=== PATIENT | female | born 1935 | race Two or more races ===

== ENCOUNTER → 2016-03-11 | Outpatient (CLI) | payer OTHER, MEDICAID | LOC: BHFA 13:30 | PROVIDERS: ATTEND Internal Medicine Cardiovascular Disease | DX: R06.02 Shortness of breath (principal) | CPT/HCPCS: 78452; 93017; A9500; J2785 ==

== ENCOUNTER → 2016-03-27 | Outpatient (CLI) | payer OTHER, MEDICAID ==
--- NOTE | 2016-03-27 14:23 | DX ---
Chest, PA and Lateral History: Dyspnea, R06.02 Comparison: May 28, 2014 Findings: There is diffuse chronic interstitial disease, without focal consolidation or pleural effus ion. The heart remains enlarged with a globular shape raising the possibility of pericardial effusion . The pulmonary vascularity is not plethoric. There is chronic tortuosity of the thoracic aorta. Ther e is possibly stable subcarinal adenopathy vs density related to left atrial enlargement.. There is n o lung parenchymal mass. There is no pleural effusion or pneumothorax. A focal kyphosis centered at t he thoracolumbar junction is stable. There are no thoracic compression abnormalities. Impression: 1. Chronic interstitial lung disease. The kyphosis may contribute a restrictive component. 2. Cardiomegaly without failure. 3. Nothing acute identified.
== END ==
LOC: FIMAGING 12:14
DX: J84.9 Interstitial pulmonary disease, unspecified (principal); I51.7 Cardiomegaly; I77.1 Stricture of artery; M40.205 Unspecified kyphosis, thoracolumbar region

== ENCOUNTER 2016-10-19 08:09 | Emergency (ER) | payer OTHER, MEDICAID ==
--- NOTE | 2016-10-19 08:17 | EDPHY ---
H & P Stated Complaint: bi-lat swelling of feet new SOB Time Seen by Provider: 10/19/16 08:16 HPI/ROS: CHIEF COMPLAINT: PND, several weeks of leg swelling, history of atrial fibrillation HISTORY OF PRESENT ILLNESS: The patient presents the emergency department with complaints of paroxysmal nocturnal dyspnea increasing over the past several nights. The patient has a history of chronic atrial fibrillation and is anticoagulated with Coumadin. She typically manages her rate with 25 mg of metoprolol day. Over the past day she has taken 50 mg. The patient recently traveled to [facility] and over the past several weeks has developed increasing lower extremity edema. The patient denies any chest pain. She does report mild dyspnea. The patient's dyspnea was much worse last night however is feeling better now that she has been upright. She denies any complaints of fever, acute rash, melena or acute neurologic symptoms. REVIEW OF SYSTEMS: A comprehensive 10 point review of systems is otherwise negative aside from elements mentioned in the history of present illness. Source: Patient Exam Limitations: No limitations - Personal History Current Tetanus/Diphtheria Vaccine: Yes Current Tetanus Diphtheria and Acellular Pertussis (TDAP): Yes Tetanus Vaccine Date: 11/28/12 - Medical/Surgical History Hx Asthma: No Hx Chronic Respiratory Disease: No Hx Diabetes: No Hx Cardiac Disease: No Hx Renal Disease: No Hx Cirrhosis: No Hx Alcoholism: No Hx HIV/AIDS: No Hx Splenectomy or Spleen Trauma: No Other PMH: Paroxysmal Afib, hypothyroid, small bowel obstruction, lysis of adhesions, osteoarthritis, GERD - Social History Smoking Status: Never smoked - Physical Exam Exam: General Appearance: Elderly female, no acute distress Eyes: Pupils equal and round no pallor or injection ENT, Mouth: Mucous membranes moist Respiratory: Rales bilateral lung hernandez Cardiovascular: Tachycardic, irregular Gastrointestinal: Abdomen is soft and nontender, no masses, bowel sounds normal Neurological: A&O, normal motor function, normal sensory exam, normal cranial nerves Skin: Warm and dry, no rashes Musculoskeletal: Neck is supple nontender Extremities: 1+ bilateral pitting edema Constitutional: Initial Vital Signs Temperature (C) 36.4 C 10/19/16 08:12 Heart Rate 114 H 10/19/16 08:12 Respiratory Rate 16 10/19/16 08:12 Blood Pressure 136/95 H 10/19/16 08:12 O2 Sat (%) 91 L 10/19/16 08:12 O2 Delivery Mode Room Air Allergies/Adverse Reactions: No Known Allergies Allergy (Unverified 10/18/13 03:37) Home Medications: Medication Instructions Recorded Calcium Carbonate [Oyster Shell 500 mg PO TIDMEAL 06/10/12 Calcium 500 mg (*)] Cholecalciferol Vit D3 [Vitamin D3 1,000 units PO DAILY 06/10/12 (*)] Levothyroxine [Synthroid 50 mcg 50 mcg PO DAILY06 06/10/12 (*)] Multivitamins [Multivitamin (*)] 1 each PO DAILY 06/10/12 Ranitidine HCl [Ranitidine HCl 150 150 mg PO DAILY 06/10/12 mg] Aspirin EC [Aspirin EC 81 mg (*)] 81 mg PO DAILY@1300 11/30/12 Metoprolol Tartrate [Lopressor 25 25 mg PO BID #60 tab 10/25/13 mg (*)] Hydrocodone/Acetaminophen [[place] 1 each PO Q6 PRN 10/27/13 5/325 (*)] Furosemide [Lasix 20 MG (*)] 20 mg PO DAILY #7 tab 10/19/16 Medical Decision Making - Diagnostics EKG Interpretation: EKG: Complete interpretation has been separately recorded in the [employer] archive. Summary impression: Atrial fibrillation, rate 100, underlying right bundle branch block, unchanged from prior EKG Imaging Results: Imaging Impressions Chest X-Ray 10/19/16 08:21 Impression: Stable chest. Diffuse interstitial thickening.. ED Course/Re-evaluation: The patient presents to the emergency department with PND, rales on exam and lower extremity edema. The patient's oxygen saturation is 91% on room air. She is noted to be in atrial fibrillation with its in the 100-120 range. The patient had an IV established. She was placed on a tube cleaner. I reviewed the patient's past medical records. The patient's chest x-ray demonstrates no evidence of overwhelming heart failure. She has chronic interstitial lung markings. The patient received 20 mg of IV Lasix. The patient's proBNP level was noted to be elevated. Patient was re-evaluated at 11:00 a.m.. She has gone up to the bathroom twice since receiving IV Lasix. She is feeling better. At this point time she is not acutely hypoxic. She has relative rate control of her atrial fibrillation. She would like to manage her symptoms at home today with a small trial of Lasix for the next several days. The patient understands to return to the emergency department for any worsening symptoms or other concerns. I have asked her to increase her metoprolol to 50 mg daily. The patient will follow up with her regular storekeeper steward. She is discharged home with customary aftercare instructions and return precautions. At 11:50 a.m. patient's blood pressure is normal, heart rate is 89, oxygen saturation 94 % on room air. Differential Diagnosis: Differential diagnosis considered includes atrial fibrillation, congestive heart failure, peripheral edema, myocardial infarction, pulmonary embolism is felt to be on likely secondary to her chronic anticoagulation. - Data Points Laboratory Results: Laboratory Results 10/19/16 08:40 10/19/16 08:40 10/19/16 10/19/16 10/19/16 08:40 08:40 08:40 WBC 6.27 10^3/uL 10^3/uL (3.80-9.50) RBC 3.58 10^6/uL L 10^6/uL (4.18-5.33) Hgb 10.8 g/dL L g/dL (12.6-16.3) Hct 32.2 % L % (38.0-47.0) MCV 89.9 fL fL (81.5-99.8) MCH 30.2 pg pg (27.9-34.1) MCHC 33.5 g/dL g/dL (32.4-36.7) RDW 16.0 % H % (11.5-15.2) Plt Count 167 10^3/uL 10^3/uL (150-400) MPV 11.4 fL fL (8.7-11.7) Neut % (Auto) 79.8 % H % (39.3-74.2) Lymph % (Auto) 12.3 % L % (15.0-45.0) R[place] % (Auto) 5.1 % % (4.5-13.0) Eos % (Auto) 1.3 % % (0.6-7.6) Baso % (Auto) 1.0 % % (0.3-1.7) Nucleat RBC Rel Count 0.0 % % (0.0-0.2) Absolute Neuts (auto) 5.01 10^3/uL 10^3/uL (1.70-6.50) Absolute Lymphs (auto) 0.77 10^3/uL L 10^3/uL (1.00-3.00) Absolute Monos (auto) 0.32 10^3/uL 10^3/uL (0.30-0.80) Absolute Eos (auto) 0.08 10^3/uL 10^3/uL (0.03-0.40) Absolute Basos (auto) 0.06 10^3/uL 10^3/uL (0.02-0.10) Absolute Nucleated RBC 0.00 10^3/uL 10^3/uL (0-0.01) Immature Gran % 0.5 % % (0.0-1.1) Immature Gran # 0.03 10^3/uL 10^3/uL (0.00-0.10) PT 27.6 SEC H SEC (12.0-15.0) INR 2.54 H (0.83-1.16) Sodium 135 mEq/L mEq/L (134-144) Potassium 4.1 mEq/L mEq/L (3.5-5.2) Chloride 96 mEq/L L mEq/L (97-110) Carbon Dioxide 27 mEq/l mEq/l (22-31) Anion Gap 12 mEq/L mEq/L (8-16) BUN 17 mg/dL mg/dL (7-23) Creatinine 0.8 mg/dL mg/dL (0.6-1.0) Estimated GFR > 60 Glucose 115 mg/dL H mg/dL (70-100) Calcium 9.8 mg/dL mg/dL (8.5-10.4) Troponin I < 0.012 ng/mL ng/mL (0.000-0.034) NT-Pro-B Natriuret Pep 5530 pg/mL H pg/mL (0-450) Medications Given: Discontinued Medications Furosemide (Lasix Injection) 20 mg IVP EDNOW ONE Stop: 10/19/16 09:25 Last Admin: 10/19/16 09:33 Dose: 20 mg Departure - Departure Disposition: Home, Routine, Self-Care Clinical Impression: Dyspnea, Pulmonary edema, Atrial fibrillation Condition: Good Instructions: A-fib (Atrial Fibrillation) (ED) Additional Instructions: 1. Take a full 50 mg dose of metoprolol daily. 2. Begin Lasix as directed for the next 5 days - 20 mg tablet once daily. 3. Please return to the ED for any markedly worsening symptoms of chest pain, shortness of breath or other concerns. 4. Please follow up with your regular storekeeper steward for a recheck early next week. Referrals: Minh Tomas MD [Medical Doctor] - As per Instructions Prescriptions: Furosemide [Lasix 20 MG (*)] 20 mg PO DAILY #7 tab
--- NOTE | 2016-10-19 08:25 | CPEKG ---
Heart Rate: 100 RR Interval: 600 QRSD Interval: 124 QT Interval: 352 QTC Interval: 454 QRS [place]: 45 T Wave [place]: 216 EKG Severity - ABNORMAL ECG - EKG Impression: ATRIAL FIBRILLATION, V-RATE 78-143 EKG Impression: RIGHT BUNDLE BRANCH BLOCK Electronically Signed By: Lauro Santos 19-Oct-2016 08:35:22
[2016-10-19 08:49] LABS: % IMMATURE GRANULYOCYTES 0.5 % (0.0-1.1); ABSOLUTE IMMATURE GRANULOCYTES 0.03 10^3/uL (0.00-0.10); ADD DIFF? NO; ADD MORPH? NO; ADD SCAN? NO; ATYPICAL LYMPHOCYTE FLAG 10 (0-99); FRAGMENT RBC FLAG 0 (0-99); HEMATOCRIT 32.2 % (38.0-47.0); HEMOGLOBIN 10.8 g/dL (12.6-16.3); LEFT SHIFT FLG 0 (0-99); LIPEMIA HEMOLYSIS FLAG 80 (0-99); MEAN CELL HEMOGLOBIN 30.2 pg (27.9-34.1); MEAN CELL HEMOGLOBIN CONCENTR. 33.5 g/dL (32.4-36.7); MEAN CELL VOLUME 89.9 fL (81.5-99.8); MEAN PLATELET VOLUME 11.4 fL (8.7-11.7); PLATELET CLUMPS FLAG 0 (0-99); PLATELET COUNT 167 10^3/uL (150-400); RED BLOOD CELL COUNT 3.58 10^6/uL (4.18-5.33)
[2016-10-19 09:06] LABS: ANION GAP 12 mEq/L (8-16); CALCIUM 9.8 mg/dL (8.5-10.4); CARBON DIOXIDE 27 mEq/l (22-31); CHLORIDE 96 mEq/L (97-110); CREATININE 0.8 mg/dL (0.6-1.0); GLOMERULAR FILTRATION RATE > 60; GLUCOSE 115 mg/dL (70-100); POTASSIUM 4.1 mEq/L (3.5-5.2); SODIUM 135 mEq/L (134-144)
[2016-10-19 09:18] LABS: TROPONIN I < 0.012 ng/mL (0.000-0.034)
[2016-10-19] MEDS ORDERED: FUROSEMIDE 20 MG/2 ML VIAL IVP ONE (09:24)
[2016-10-19 09:43] LABS: INR 2.54 (0.83-1.16); PROTIME(PATIENT) 27.6 SEC (12.0-15.0)
[2016-10-19 11:13] VITALS: BP 123/74; PULSE 82; RESP 18; TEMP 98.2; O2SAT 93
== END 2016-10-19 11:16 | disposition home or self-care (01) ==
DX: I48.91 Unspecified atrial fibrillation (principal); J81.1 Chronic pulmonary edema; Z79.82 Long term (current) use of aspirin; Z79.01 Long term (current) use of anticoagulants
CPT/HCPCS: 71020; 93005; 96374; 99285; J1940

== ENCOUNTER → 2016-11-01 | Outpatient (CLI) | payer OTHER, MEDICAID | LOC: FIMAGING 12:37 | PROVIDERS: ATTEND Family Medicine | DX: Z12.31 Encounter for screening mammogram for malignant neoplasm of breast (principal) | CPT/HCPCS: G0202 ==

== ENCOUNTER 2017-06-10 03:57 | Emergency (ER) | payer OTHER, MEDICAID ==
--- NOTE | 2017-06-10 04:08 | EDPHY ---
H & P Time Seen by Provider: 06/10/17 04:08 HPI/ROS: HPI CHIEF COMPLAINT: Severe throat pain. HISTORY OF PRESENT ILLNESS: Patient very pleasant 81-year-old female she has a history of AFib on Coumadin, thyroid disease, she presents emergency room with severe throat pain. Patient states she woke up to have a drink around 2:00 a.m. Try to take a big gulp of water and developed severe throat pain. States she went to bed fine however she did have a bloody nose earlier in the evening and did take a dose of Afrin. Otherwise denies cough, chest pain, shortness of breath, denies extremity pain. Denies headache or posterior neck pain. Pain is located to the posterior pharynx pain when she swallows. She denies having any trouble swallowing but has pain when she swallows. Past Medical History: AFib on Coumadin, thyroid disease, GERD Past Surgical History: No recent surgery Social History: Lives locally, family at bedside. Denies drugs alcohol tobacco products. Family History: Noncontributory ROS REVIEW OF SYSTEMS: A comprehensive 10 point review of systems is otherwise negative aside from elements mentioned in the history of present illness. Exam Constitutional appears well nontoxic no acute distress, frail elderly, triage nursing summary reviewed, vital signs reviewed, awake/alert. Eyes normal conjunctivae and sclera, EOMI, PERRLA. HENT posterior pharynx is unremarkable no significant swelling or erythema, no exudate, uvula midline, tonsillar tissue was absent, no neck swelling, no Abhinav 's, no stridor, no drooling, no trouble breathing, moist mucus membranes, no epistaxis, neck supple/ no meningismus, no raccoon eyes. Respiratory clear to auscultation bilaterally, normal breath sounds, no respiratory distress, no wheezing. Cardiovascular rate normal, regular rhythm, no murmur, no edema, distal pulses normal. Gastrointestinal soft, non-tender, no rebound, no guarding, normal bowel sounds, no distension, no pulsatile mass. Genitourinary no CVA tenderness. Musculoskeletal no midline vertebral tenderness, full range of motion, no calf swelling, no tenderness of extremities, no meningismus, good pulses, neurovascularly intact. Skin pink, warm, & dry, no rash, skin atraumatic. Neurologic awake, alert and oriented x 3, AAOx3, moves all 4 extremities equally, motor intact, sensory intact, CN II-XII intact, normal cerebellar, normal vision, normal speech. Psychiatric normal mood/affect. Heme/Lymph/Immune no lymphadenopathy. Differential Diagnosis: Includes but is not limited to in a particular order pharyngitis, viral pharyngitis, bacterial pharyngitis, GERD, retropharyngeal abscess, infection, foreign body, throat irritation Medical Decision Making: Plan for this patient IV establishment basic blood draw, check CBC and chemistry, check INR as she is on Coumadin had a nosebleed earlier, CT scan soft tissue with IV contrast of the neck, GI cocktail to see if this improves her symptoms. Re-evaluation: 614: Re-evaluation at this time patient states that her pain when she swallows has resolved after the lidocaine neb she feels much better. Still pending CT soft tissue neck with IV contrast to be red and reported. 07: I did re-evaluate the patient she is resting comfortably feels much better. She is able swallow without any difficulty. She states she feels much better. Her CT scan soft tissue neck with IV contrast did not show any acute inflammatory process this was called to me by Dr. Faulkner. No evidence of inflammation on the CT scan. Blood work is reassuring. Coumadin level 3.5. She has no stridor no trouble breathing. Discussed return precautions with the son at bedside. Additionally will given ENT referral K she continues to have some throat pain. I do not see any evidence of infection on exam. Blood work and CT reassuring. Return precautions discussed. Recommend cold fluids today and a soft diet. Source: Patient - Personal History Tetanus Vaccine Date: 11/28/12 - Medical/Surgical History Hx Asthma: No Hx Chronic Respiratory Disease: No Hx Diabetes: No Hx Cardiac Disease: No Hx Renal Disease: No Hx Cirrhosis: No Hx Alcoholism: No Hx HIV/AIDS: No Hx Splenectomy or Spleen Trauma: No Other PMH: Paroxysmal Afib, hypothyroid, small bowel obstruction, lysis of adhesions, osteoarthritis, GERD - Social History Smoking Status: Never smoked Constitutional: Initial Vital Signs Temperature (C) 36.4 C 06/10/17 04:00 Heart Rate 79 06/10/17 04:00 Respiratory Rate 18 06/10/17 04:00 Blood Pressure 132/97 H 06/10/17 04:00 O2 Sat (%) 96 06/10/17 04:00 O2 Delivery Mode Room Air Allergies/Adverse Reactions: No Known Allergies Allergy (Unverified 06/10/17 04:13) Home Medications: Medication Instructions Recorded Calcium Carbonate [Oyster Shell 500 mg PO TIDMEAL 06/10/12 Calcium 500 mg (*)] Cholecalciferol Vit D3 [Vitamin D3 1,000 units PO DAILY 06/10/12 (*)] Levothyroxine [Synthroid 50 mcg 50 mcg PO DAILY06 06/10/12 (*)] Multivitamins [Multivitamin (*)] 1 each PO DAILY 06/10/12 Ranitidine HCl [Ranitidine HCl 150 150 mg PO DAILY 06/10/12 mg] Aspirin EC [Aspirin EC 81 mg (*)] 81 mg PO DAILY@1300 11/30/12 Metoprolol Tartrate [Lopressor 25 25 mg PO BID #60 tab 10/25/13 mg (*)] Hydrocodone/Acetaminophen [[place]tha 1 each PO Q6 PRN 10/27/13 5/325 (*)] Furosemide [Lasix 20 MG (*)] 20 mg PO DAILY #7 tab 10/19/16 Medical Decision Making - Data Points Laboratory Results: Laboratory Results 06/10/17 04:20 06/10/17 04:20 06/10/17 06/10/17 06/10/17 04:20 04:20 04:20 WBC 4.69 10^3/uL 10^3/uL (3.80-9.50) RBC 3.61 10^6/uL L 10^6/uL (4.18-5.33) Hgb 10.9 g/dL L g/dL (12.6-16.3) Hct 32.2 % L % (38.0-47.0) MCV 89.2 fL fL (81.5-99.8) MCH 30.2 pg pg (27.9-34.1) MCHC 33.9 g/dL g/dL (32.4-36.7) RDW 15.3 % H % (11.5-15.2) Plt Count 145 10^3/uL L 10^3/uL (150-400) MPV 10.7 fL fL (8.7-11.7) Neut % (Auto) 67.8 % % (39.3-74.2) Lymph % (Auto) 19.6 % % (15.0-45.0) [place] % (Auto) 9.0 % % (4.5-13.0) Eos % (Auto) 1.9 % % (0.6-7.6) Baso % (Auto) 1.3 % % (0.3-1.7) Nucleat RBC Rel Count 0.0 % % (0.0-0.2) Absolute Neuts (auto) 3.18 10^3/uL 10^3/uL (1.70-6.50) Absolute Lymphs (auto) 0.92 10^3/uL L 10^3/uL (1.00-3.00) Absolute Monos (auto) 0.42 10^3/uL 10^3/uL (0.30-0.80) Absolute Eos (auto) 0.09 10^3/uL 10^3/uL (0.03-0.40) Absolute Basos (auto) 0.06 10^3/uL 10^3/uL (0.02-0.10) Absolute Nucleated RBC 0.00 10^3/uL 10^3/uL (0-0.01) Immature Gran % 0.4 % % (0.0-1.1) Immature Gran # 0.02 10^3/uL 10^3/uL (0.00-0.10) PT 31.9 SEC H SEC (12.0-15.0) INR 3.12 H (0.83-1.16) APTT 49.4 SEC H SEC (23.0-38.0) Sodium 134 mEq/L L mEq/L (135-145) Potassium 3.9 mEq/L mEq/L (3.5-5.2) Chloride 95 mEq/L L mEq/L (97-110) Carbon Dioxide 28 mEq/l mEq/l (22-31) Anion Gap 11 mEq/L mEq/L (8-16) BUN 25 mg/dL H mg/dL (7-23) Creatinine 0.8 mg/dL mg/dL (0.6-1.0) Estimated GFR > 60 Glucose 101 mg/dL H mg/dL (70-100) Calcium 9.3 mg/dL mg/dL (8.5-10.4) Medications Given: Discontinued Medications Al Hydroxide/Mg Hydroxide (Maalox Susp) 30 ml PO ONCE ONE Stop: 06/10/17 04:18 Last Admin: 06/10/17 04:33 Dose: 30 ml Hyoscyamine Sulfate (Levsin, Hyomax-Sl) 0.25 mg PO ONCE ONE Stop: 06/10/17 04:18 Last Admin: 06/10/17 04:33 Dose: 0.25 mg Lidocaine (Lidocaine 2% Viscous) 15 ml PO ONCE ONE Stop: 06/10/17 04:18 Last Admin: 06/10/17 04:33 Dose: 15 ml Lidocaine HCl (Xylocaine-Mpf 1.5%) 10 ml NB ONCE ONE Stop: 06/10/17 05:01 Last Admin: 06/10/17 05:26 Dose: 10 ml Departure - Departure Disposition: Home, Routine, Self-Care Clinical Impression: Throat pain Condition: Good Instructions: Pharyngitis (ED) Additional Instructions: 1. Cold fluids today. 2. Return emergency room if you have any worsening symptoms includes worsening throat pain, fever, vomiting 3. Soft foods today. 4. Return emergency room if worsening pain. 5. Follow up with ENT. Referrals: Kelly Reich MD [Primary Care Provider] - As per Instructions Hugh Resendiz MD [Medical Doctor] - As per Instructions
[2017-06-10] MEDS ORDERED: LIDOCAINE 2% VISCOUS 15 ML UDCUP PO ONE (04:17)
[2017-06-10] MEDS ORDERED: MAG HYDROX/AL HYDROX/SIMETH 30 ML UDCUP PO ONE (04:17)
[2017-06-10] MEDS ORDERED: HYOSCYAMINE SULFATE 0.125 MG TAB PO ONE (04:17)
[2017-06-10 04:36] LABS: PLATELET COUNT 145 10^3/uL (150-400)
[2017-06-10 04:44] LABS: INR 3.12 (0.83-1.16); PROTIME(PATIENT) 31.9 SEC (12.0-15.0)
[2017-06-10] MEDS ORDERED: IOPAMIDOL (ISOVUE-300) 100 ML BTL ONE (04:53)
[2017-06-10] MEDS ORDERED: LIDOCAINE 1.5% NB ONE (05:00)
[2017-06-10] MEDS ORDERED: LIDOCAINE 1% 5 ML SDV ONE (05:12)
[2017-06-10] MEDS ORDERED: DEXAMETHASONE 10 MG/ML VIAL IVP ONE (07:29)
[2017-06-10 08:04] VITALS: BP 128/73
== END 2017-06-10 08:04 | disposition home or self-care (01) ==
DX: R07.0 Pain in throat (principal); Z87.891 Personal history of nicotine dependence
CPT/HCPCS: 70491; 96374; 99285; J1100; Q9967

== ENCOUNTER → 2017-07-28 | Outpatient (CLI) | payer OTHER, MEDICAID | LOC: FIMAGING 16:58 | PROVIDERS: ATTEND Physician Assistant Medical | DX: R31.29 Other microscopic hematuria (principal); R35.0 Frequency of micturition ==

== ENCOUNTER → 2017-09-13 | Outpatient (CLI) | payer OTHER, MEDICAID | LOC: FIMAGING 11:53 | PROVIDERS: ATTEND Family Medicine | DX: M50.30 Other cervical disc degeneration, unspecified cervical region (principal); M40.204 Unspecified kyphosis, thoracic region; E03.9 Hypothyroidism, unspecified ==

== ENCOUNTER → 2017-11-08 | Outpatient (CLI) | payer OTHER, MEDICAID | LOC: FIMAGING 15:02 | PROVIDERS: ATTEND Family Medicine | DX: Z12.31 Encounter for screening mammogram for malignant neoplasm of breast (principal) ==

== ENCOUNTER → 2017-11-21 | Outpatient (CLI) | payer OTHER, MEDICAID | LOC: BHFA 14:00 | PROVIDERS: ATTEND Internal Medicine Cardiovascular Disease | DX: I48.91 Unspecified atrial fibrillation (principal) ==

== ENCOUNTER 2018-05-17 18:11 | Emergency (ER) | payer OTHER, MEDICAID ==
--- NOTE | 2018-05-17 18:46 | EDPHY ---
HPI/HX/ROS/PE/MDM Narrative: CHIEF COMPLAINT: Sore throat HISTORY OF PRESENT ILLNESS: The patient is an 82 y/o female with a history of atrial fibrillation and thyroid condition complaining of pain in the right side of the throat. Around 3:30 AM, she awoke with pain in the right side of her throat. She drank some water and found it painful to swallow. She had a Ricola lozenge which improved her symptoms. This morning, she had pain when eating and drinking. The pain worsened over the course of the day. She denies congestion, headache, fever, or any other associated symptoms. She denies any changes in medication. No fever, chills, chest pain, shortness of breath, palpitations, vomiting, diarrhea, urinary complaints, headache, lightheadedness. REVIEW OF SYSTEMS: A comprehensive 10 system review of systems is otherwise negative aside from elements mentioned in the history of present illness and medical decision making PAST MEDICAL HISTORY: Atrial fibrillation, thyroid condition SOCIAL HISTORY: Lives in [place], retired, son at bedside VITAL SIGNS: Reviewed by me GENERAL: Well-developed, well-nourished, resting comfortably in no respiratory distress. HEENT: Atraumatic. Eyes: No icterus, no injection. Mouth: "Cobblestoning" in the posterior pharynx. Moist mucous membranes. No erythema or lesions. Neck: supple with no adenopathy. No tenderness to palpation. No goiter palpable. LUNGS: Clear to auscultation bilaterally, no wheezes, rhonchi or rales. CARDIAC: Regularly irregular rate and rhythm, no rubs, murmurs or gallops. ABDOMEN: Soft, nontender, nondistended, bowel sounds normal. BACK: No CVA tenderness. EXTREMITIES: No trauma. No edema. Range of motion is normal throughout. NEURO: Alert and oriented, grossly nonfocal. SKIN: Warm and dry, no rash. PSYCHIATRIC: Normal mentation, no agitation. ED Course: The patient presents with pain in the right side of the throat when swallowing. On exam, she has mild posterior pharyngeal erythema and cobblestoning and no other findings. This is almost exactly a year from her last ED visit for the same complaint. I feel this may be related to seasonal allergies as the patient describes constant runny nose which is worse in the spring. Plan for strep screen to evaluate strep. 19:10 - Strep is negative. I feel she is safe to return home with ENT follow up if symptoms do not improve. She agrees to this course of action. Please see the discharge instructions MDM: Differential diagnosis for the patient's sore throat was considered including but not limited to viral pharyngitis, bacterial pharyngitis, postnasal drip, seasonal allergies, thyroid nodule, tonsillitis, tonsillar abscess, foreign body , epiglottitis, bacterial tracheitis. - Data Points Medications Given: Discontinued Medications Acetaminophen (Tylenol) 650 mg PO EDNOW ONE Stop: 05/17/18 18:52 Last Admin: 05/17/18 18:59 Dose: 650 mg Dexamethasone (Decadron) 8 mg PO EDNOW ONE Stop: 05/17/18 18:52 Last Admin: 05/17/18 19:00 Dose: 8 mg General Time Seen by Provider: 05/17/18 18:24 Initial Vital Signs: Initial Vital Signs Temperature (C) 36.5 C 05/17/18 18:18 Heart Rate 112 H 05/17/18 18:18 Respiratory Rate 18 05/17/18 18:18 Blood Pressure 130/86 H 05/17/18 18:18 O2 Sat (%) 100 05/17/18 18:18 O2 Delivery Mode Room Air Allergies/Adverse Reactions: No Known Allergies Allergy (Verified 05/17/18 18:16) Home Medications: Medication Instructions Recorded Calcium Carbonate [Oyster Shell 500 mg PO TIDMEAL 06/10/12 Calcium 500 mg (*)] Cholecalciferol Vit D3 [Vitamin D3 1,000 units PO DAILY 06/10/12 (*)] Levothyroxine [Synthroid 50 mcg 50 mcg PO DAILY06 06/10/12 (*)] Multivitamins [Multivitamin (*)] 1 each PO DAILY 06/10/12 Ranitidine HCl [Ranitidine HCl 150 150 mg PO DAILY 06/10/12 mg] Aspirin EC [Aspirin EC 81 mg (*)] 81 mg PO DAILY@1300 11/30/12 Metoprolol Tartrate [Lopressor 25 25 mg PO BID #60 tab 10/25/13 mg (*)] Hydrocodone/Acetaminophen [[place] 1 each PO Q6 PRN 10/27/13 5/325 (*)] Furosemide [Lasix 20 MG (*)] 20 mg PO DAILY #7 tab 10/19/16 Departure - Departure Disposition: Home, Routine, Self-Care Clinical Impression: Sore throat Condition: Good Instructions: Pharyngitis (ED) Additional Instructions: 1. Please take tylenol as needed for pain. Gargle with warm salt water to help with pain and inflammation. 2. Follow up with an ENT if symptoms do not improve in 1 week. 3. Consider an [id number] nonsedating antihistamine for the runny nose especially if it is worse in the spring. 4. Return to the emergency department if you experience fever, weakness, vomiting, or any other worsening of condition. Referrals: Chrystal Motley MD [Primary Care Provider] - As per Instructions Maricel aGrcia MD [Medical Doctor] - As per Instructions Report Scribed for: Yadira Wetzel Report Scribed by: Coral Krishnamurthy Date of Report: 05/17/18 Time of Report: 18:53 Physician Review and Approval Statement: Portions of this note were transcribed by a dental assistant medical assistant. I personally performed a history, physical exam, medical decision making, and confirmed accuracy of information the transcribed note.
[2018-05-17] MEDS ORDERED: ACETAMINOPHEN 325 MG TAB PO ONE (18:51)
[2018-05-17] MEDS ORDERED: DEXAMETHASONE 4 MG TAB PO ONE (18:51)
[2018-05-17 19:15] VITALS: BP 133/70
== END 2018-05-17 19:14 | disposition home or self-care (01) ==
DX: J02.9 Acute pharyngitis, unspecified (principal)

== ENCOUNTER → 2018-06-12 | Outpatient (CLI) | payer OTHER, MEDICAID | LOC: FIMAGING 14:37 | PROVIDERS: ATTEND Physician Assistant Medical | DX: M25.775 Osteophyte, left foot (principal); M25.872 Other specified joint disorders, left ankle and foot ==